=== PATIENT | female | born 1960 | race Caucasian/White ===

== ENCOUNTER 2017-09-09 08:23 | Outpatient (CLI) | payer OTHER | END 2017-09-09 08:24 | disposition home or self-care (01) | LOC: BICMAMMO 08:23 | PROVIDERS: ATTEND Obstetrics & Gynecology | DX: Z12.31 Encounter for screening mammogram for malignant neoplasm of breast (principal); Z13.820 Encounter for screening for osteoporosis; M85.88 Other specified disorders of bone density and structure, other site; M85.852 Other specified disorders of bone density and structure, left thigh; Z85.3 Personal history of malignant neoplasm of breast; R92.1 Mammographic calcification found on diagnostic imaging of breast | CPT/HCPCS: 77066; 77080; G0279 ==

== ENCOUNTER 2018-08-17 11:07 | Outpatient (CLI) | payer OTHER ==
--- NOTE | 2018-08-17 12:40 | RAD ---
LEFT HIP TWO VIEWS: HISTORY: Hip pain. FINDINGS: There are minimal arthritic changes of the hip with spurring along the acetabulum, without significan t joint space narrowing. No fracture or other concerning findings. IMPRESSION: Minimal arthritic changes of the left hip. POS: TPC
--- NOTE | 2018-08-17 12:42 | RAD ---
RIGHT HIP TWO VIEWS: HISTORY: Right hip pain. FINDINGS: The right hip also shows minimal arthritic changes. Tiny early spur formation along the femoral head and neck junction and some spurring along the acetabulum is seen. No significant joint space narrow ing. IMPRESSION: Minimal arthritic changes of the right hip. POS: TPC
== END 2018-08-17 11:08 | disposition home or self-care (01) ==
LOC: SCSRAD 11:07
PROVIDERS: ATTEND Physician Assistant
DX: M25.552 Pain in left hip (principal); M25.551 Pain in right hip; Z85.3 Personal history of malignant neoplasm of breast; Z82.61 Family history of arthritis; M16.0 Bilateral primary osteoarthritis of hip

== ENCOUNTER 2018-09-12 08:42 | Outpatient (CLI) | payer OTHER ==
--- NOTE | 2018-09-12 09:50 | BD ---
DEXA BONE MINERAL DENSITY STUDY: HISTORY: Screening for osteoporosis. COMPARISON: DEXA study from 09/09/2017. FINDINGS: LUMBAR SPINE BMD (g/cm2) T-SCORE Z-SCORE L1 0.735 -2.3 -1.3 L2 0.861 -1.5 -0.4 L3 0.823 -2.4 -1.2 L4 0.814 -2.2 -1.0 TOTAL 0.810 -2.2 -1.0 WHO CLASSIFICATION: Osteopenia. On the 2003 study, there was a decreased bone mineral density of 19.4%. BMD (g/cm2) T-SCORE Z-SCORE FEMORAL NECK: 0.612 -2.1 -1.0 TOTAL: 0.792 -1.2 -0.5 WHO CLASSIFICATION: Osteopenia. From the comparison examination, there is decreased bone mineral density of 7.7%. TEN YEAR FRACTURE RISK: Major osteoporotic fracture: 8.8% Hip fracture: 1.2% IMPRESSION: Osteopenia with fracture risk as above. POS: NAIMA
== END 2018-09-12 08:43 | disposition home or self-care (01) ==
LOC: BICMAMMO 08:42
PROVIDERS: ATTEND Obstetrics & Gynecology
DX: Z12.31 Encounter for screening mammogram for malignant neoplasm of breast (principal); Z13.820 Encounter for screening for osteoporosis; R92.1 Mammographic calcification found on diagnostic imaging of breast; M85.89 Other specified disorders of bone density and structure, multiple sites; Z85.3 Personal history of malignant neoplasm of breast
CPT/HCPCS: 77063; 77067; 77080

== ENCOUNTER 2019-09-13 07:49 | Outpatient (CLI) | payer OTHER ==
--- NOTE | 2019-09-13 08:33 | MMO ---
Bilateral MAMMO Bilat Screen [facility]. CLINICAL HISTORY: Patient is 59 years old and is seen for screening. The patient has no family history of breast cancer. The patient has a history of malignant (generic) in the right breast 1995. The patient has a history of right Lumpectomy in 1995 - malignant and right Excisional Biopsy in 1995. VIEWS: The views performed were: bilateral craniocaudal with tomosynthesis and bilateral mediolateral oblique with tomosynthesis. FILMS COMPARED: The present examination has been compared to prior imaging studies performed at [facility] on 07/30/2015, 08/05/2016, 09/09/2017 and 09/12/2018. This study has been interpreted with the assistance of computer-aided detection. MAMMOGRAM FINDINGS: There are scattered fibroglandular densities. There are stable benign appearing calcifications seen in both breasts. There are no suspicious masses, suspicious calcifications, or new areas of architectural distortion. IMPRESSION: THERE IS NO MAMMOGRAPHIC EVIDENCE OF MALIGNANCY. A ROUTINE FOLLOW-UP MAMMOGRAM IN 1 YEAR IS RECOMMENDED. THE RESULTS OF THIS EXAM WERE SENT TO THE PATIENT. ACR BI-RADS Category 2 - Benign finding MAMMOGRAPHY NOTE: 1. A negative mammogram report should not delay a biopsy if a dominant of clinically suspicious mass is present. 2. Approximately 10% to 15% of breast cancers are not detected by mammography. 3. Adenosis and dense breasts may obscure an underlying neoplasm. Reported by: HASEEB WOOD MD Electonically Signed: [id number]
== END 2019-09-13 07:50 | disposition home or self-care (01) ==
LOC: BICMAMMO 07:49
PROVIDERS: ATTEND Student in an Organized Health Care Education/Training Program
DX: Z12.31 Encounter for screening mammogram for malignant neoplasm of breast (principal); Z85.3 Personal history of malignant neoplasm of breast; Z98.890 Other specified postprocedural states
CPT/HCPCS: 77063; 77067

== ENCOUNTER 2020-09-18 09:00 | Outpatient (CLI) | payer OTHER ==
--- NOTE | 2020-09-18 10:07 | MMO ---
Bilateral MAMMO Bilat Screen [facility]. CLINICAL HISTORY: Patient is 60 years old and is seen for screening. The patient has no family history of breast cancer. The patient has a history of malignant (generic) in the right breast 1995. The patient has a history of right Lumpectomy in 1995 - malignant and right Excisional Biopsy in 1995. VIEWS: The views performed were: bilateral craniocaudal with tomosynthesis and bilateral mediolateral oblique with tomosynthesis. FILMS COMPARED: The present examination has been compared to prior imaging studies performed at [facility] on 08/05/2016, 09/09/2017, 09/12/2018 and 09/13/2019. This study has been interpreted with the assistance of computer-aided detection. MAMMOGRAM FINDINGS: There are scattered fibroglandular densities. There are stable benign appearing calcifications seen in both breasts. There are no suspicious masses, suspicious calcifications, or new areas of architectural distortion. IMPRESSION: THERE IS NO MAMMOGRAPHIC EVIDENCE OF MALIGNANCY. A ROUTINE FOLLOW-UP MAMMOGRAM IN 1 YEAR IS RECOMMENDED. THE RESULTS OF THIS EXAM WERE SENT TO THE PATIENT. ACR BI-RADS Category 2 - Benign finding MAMMOGRAPHY NOTE: 1. A negative mammogram report should not delay a biopsy if a dominant of clinically suspicious mass is present. 2. Approximately 10% to 15% of breast cancers are not detected by mammography. 3. Adenosis and dense breasts may obscure an underlying neoplasm. Reported by: HASEEB WOOD MD Electonically Signed: [id number]
== END 2020-09-18 09:01 | disposition home or self-care (01) ==
LOC: BICMAMMO 09:00
PROVIDERS: ATTEND Student in an Organized Health Care Education/Training Program
DX: Z12.31 Encounter for screening mammogram for malignant neoplasm of breast (principal); Z85.3 Personal history of malignant neoplasm of breast; Z98.890 Other specified postprocedural states
CPT/HCPCS: 77063; 77067

== ENCOUNTER 2023-05-05 13:49 | Outpatient (CLI) | payer BC | END 2023-05-05 13:50 | disposition home or self-care (01) | LOC: SCSRAD 13:49 | PROVIDERS: ATTEND Nurse Practitioner Family | DX: R05.2 Subacute cough (principal) | CPT/HCPCS: 71046 ==

== ENCOUNTER 2023-11-29 10:09 | Outpatient (CLI) | payer BC | END 2023-11-29 10:10 | disposition home or self-care (01) | LOC: BICMAMMO 10:09 | PROVIDERS: ATTEND Student in an Organized Health Care Education/Training Program | DX: Z12.31 Encounter for screening mammogram for malignant neoplasm of breast (principal); Z85.3 Personal history of malignant neoplasm of breast; Z98.890 Other specified postprocedural states | CPT/HCPCS: 77063; 77067 ==